=== PATIENT | female | born 1975 | race Caucasian/White ===

== ENCOUNTER 2020-01-16 23:12 | Emergency (ER) | payer BC, SELFPAY ==
--- NOTE | ~2020-01-16 | CT_ITS ---
EXAMINATION: CT abdomen pelvis wo con DATE: 01/17/2020 00:44 INDICATION: Bilateral flank pain. TECHNIQUE: Computed tomography (CT) of the abdomen and pelvis was performed without intravenous contr ast. Automated exposure control and iterative reconstruction technique were employed. The dose-length product was 738.97 mGy-cm. COMPARISON: CT abdomen and pelvis 12/15/2016 FINDINGS: The visualized portions of the lung bases are clear without pneumonia or pleural effusion. The heart size is normal. No pericardial effusion. There are bilateral breast implants. The liver, sp alan, gallbladder, pancreas, adrenal glands, and kidneys are normal. There are no dilated loops of nile wel. There are changes of appendectomy. There are no pathologically enlarged lymph nodes. There is no free intraperitoneal fluid. There is mild thoracolumbar spondylosis. IMPRESSION: 1. No urolithiasis. Reviewed, dictated and finalized at location A. IMPRESSION: 1. No urolithiasis.
[2020-01-16 23:30] VITALS: BP 144/88; PULSE 104; RESP 16; TEMP 36.7; O2SAT 98
[2020-01-17 00:05] LABS: Basophils Percent Auto 0.4 % (0.2-1.2); Hematocrit 42.2 % (37.0-47.0); Immature Granulocyte Absolute 0.01 K/mm3 (0.00-0.031); Immature Granulocyte Percent A 0.1 % (0-0.5); Lymphocytes Absolute Auto 3.49 K/mm3 (0.9-3.2); Lymphocytes Percent Auto 42.6 % (18.3-44.2); Mean Corpuscular HGB Conc 33.2 g/dl (32-36); Mean Corpuscular Hemoglobin 29.5 pg (26-34); Mean Corpuscular Volume 88.8 fl (80-100); Mean Platelet Volume 9.5 fl (7.4-10.4); Monocytes Absolute Auto 0.8 K/mm3 (0.1-0.6); Monocytes Percent Auto 9.3 % (2.6-8.5); Neutrophils Absolute Auto 3.9 K/mm3 (1.3-6.7); Neutrophils Percent Auto 47.6 % (45.5-73.1); Platelet Count Result 306 k/mm3 (150-375); Red Blood Count 4.75 M/mm3 (4.2-5.4); Red Cell Distribution Width 13.2 % (11.5-14.5); White Blood Count 8.2 K/mm3 (4.5-10.0)
[2020-01-17 00:13] LABS: Add Urine Microscopic? YES; Appearance Urine Clear (Clear); Bilirubin Urine Negative (Negative); Blood Urine Negative (Negative); Color Urine Yellow (Yellow); Glucose Urine UA Negative (Negative); Ketones Urine Negative (Negative); Leukocyte Esterase Ur 1+ LEU/UL (Negative); Mucus Urine Rare /lpf; Nitrate Urine Negative (Negative); Protein Urine 1+ mg/dL (Negative); RBC Urine 0-2 /hpf (0-2); Specific Grav Ur 1.023 (1.001-1.035); Squamous Epithelial Cell Urine Many /hpf (Few); Urobilinogen Urine Negative mg/dL (<2.0)
[2020-01-17] MEDS: ONDANSETRON INJ 4 MG/2 ML VIAL IV PUSH (00:14)
[2020-01-17] MEDS: MORPHINE SULFATE 4 MG/ML INJ IV PUSH (00:14)
[2020-01-17 00:17] LABS: Alanine Aminotransferase 40 U/L (4-35); Albumin Level 4.7 g/dL (3.5-5.1); Alkaline Phosphatase 139 U/L (38-126); Aspartate Amino Transferase 38 U/L (14-36); Bilirubin,Total 0.3 mg/dL (0.2-1.3); Blood Urea Nitrogen 14 mg/dL (7-17); Calcium 9.3 mg/dL (8.4-10.2); Carbon Dioxide 27 mmol/L (22-30); Chloride 102 mmol/L (98-107); Estimated Glomerular Filt Rate > 60; Glucose 118 mg/dL (65-105); Lipase 126 U/L (23-300); Potassium 3.8 mmol/L (3.4-5.0); Sodium 137 mmol/L (137-145)
--- NOTE | 2020-01-17 00:28 | ED.ABDPAIN ---
HPI - Abdominal Pain General Chief Complaint: Abdominal Pain Stated Complaint: Lower abd pain Time Seen by Provider: 01/16/20 23:27 History of Present Illness HPI narrative: Patient is a 44-year-old female who presents ER with lower abdominal pain. Began yesterday and has increased. Constant pain. Associate with nausea but no vomiting. Normal stools. No urinary symptoms associated with it. Symptoms are worse with positional movements. Better with laying down flat. Occasional radiation to her back. Related Data Home Medications Medication Instructions Recorded Confirmed albuterol sulfate 90 mcg/actuation 1 puff INHALATION Q4H PRN 07/24/19 aerosol inhaler alprazolam 1 mg tablet 1 mg PO DAILY 07/24/19 budesonide-formoterol HFA 160 2 puff INHALATION Q12H 07/24/19 mcg-4.5 mcg/actuation aerosol inhaler letrozole 2.5 mg tablet 2.5 mg PO DAILY 07/24/19 montelukast 10 mg tablet 10 mg PO DAILY 07/24/19 paroxetine HCl 20 mg tablet 40 mg PO DAILY 07/24/19 Allergies Allergy/AdvReac Type Severity Reaction Status Date / Time scopolamine Allergy Unknown TEMPORARY Verified 01/16/20 23:38 LOSS OF VISION hydrocodone AdvReac Unknown ITCHING Verified 01/16/20 23:38 Review of Systems Review of Systems: All systems reviewed & are unremarkable except as noted in HPI and below Constitutional: Constitutional: Denies chills, Denies fever(s) and Denies weakness ENT: Denies nasal congestion and Denies sore throat Respiratory: Respiratory: Denies cough, Denies dyspnea and Denies wheezing Gastrointestinal: Gastrointestinal: Reports abdominal pain, Denies constipation, Denies diarrhea, Reports nausea and Denies vomiting Genitourinary: Genitourinary: Denies hematuria, Denies nocturia and Denies urinary incontinence [facility] Past Medical History Medical History (Updated 01/17/20 @ 04:22 by Hardy Sotelo MD) No pertinent past medical history Surgical History Surgical History (Updated 01/17/20 @ 00:29 by Hardy Sotelo MD) H/O: hysterectomy Hx of appendectomy Social History Social History Smoking status: Never smoker Alcohol intake: never Exam Narrative: Exam Narrative: GENERAL: Uncomfortable-appearing, well-nourished, and in no acute distress. HEAD: Normocephalic, atraumatic. ENT: Mucous membranes moist.. CHEST: Clear to auscultation. No respiratory distress. HEART: Regular rate and rhythm. Normal peripheral pulses. ABDOMEN: Soft, mild suprapubic tenderness without guarding, nondistended, normal active bowel sounds. EXTREMITIES: Normal range of motion. No edema. SKIN: Warm, dry, no rash. NEURO: Alert and oriented x3. Course Vital Signs Vital signs: Vital Signs Temperature 98.1 F 01/16/20 23:30 Pulse Rate 104 H 01/16/20 23:30 Respiratory Rate 16 01/16/20 23:30 Blood Pressure 144/88 H 01/16/20 23:30 Pulse Oximetry 98 01/16/20 23:30 Temperature 98.1 F 01/16/20 23:30 Pulse Rate 73 01/17/20 00:49 Respiratory Rate 16 01/17/20 00:49 Blood Pressure 126/78 01/17/20 00:49 Pulse Oximetry 100 01/17/20 00:49 MDM - Abdominal Pain Lab Data Result diagrams: 01/16/20 23:50 01/16/20 23:50 Labs: Lab Results 01/16/20 01/16/20 01/16/20 Range/Units 23:50 23:50 23:50 WBC 8.2 (4.5-10.0) K/mm3 RBC 4.75 (4.2-5.4) M/mm3 Hgb 14.0 (12.0-15.0) g/dL Hct 42.2 (37.0-47.0) % MCV 88.8 (80-100) fl MCH 29.5 (26-34) pg MCHC 33.2 (32-36) g/dl RDW 13.2 (11.5-14.5) % Plt Count 306 (150-375) k/mm3 MPV 9.5 (7.4-10.4) fl Immature Gran % (Auto) 0.1 (0-0.5) % Neut % (Auto) 47.6 (45.5-73.1) % Lymph % (Auto) 42.6 (18.3-44.2) % B[place] % (Auto) 9.3 H (2.6-8.5) % Eos % (Auto) 0.0 (0-4.4) % Baso % (Auto) 0.4 (0.2-1.2) % Lymph # (Auto) 3.49 H (0.9-3.2) K/mm3 Barrow # (Auto) 0.8 H (0.1-0.6) K/mm3 Eos # (Auto)
[2020-01-17 00:49] VITALS: BP 126/78; PULSE 73; RESP 16; O2SAT 100
== END 2020-01-17 02:43 | disposition home or self-care (01) ==
PROVIDERS: Emergency Provider Emergency Medicine; PCP Family Medicine
DX: K59.00 Constipation, unspecified (principal)
CPT/HCPCS: 36415; 74176; 80053; 81001; 83690; 85025; 96374; 96375; 99284; J2270; J2405

== ENCOUNTER 2020-02-13 05:52 | Outpatient (CLI) | payer BC, SELFPAY ==
[2020-02-13 16:51] LABS: SARS-CoV-2 RNA PCR Negative
== END 2020-02-13 05:53 | disposition home or self-care (01) ==
LOC: ANHCOVIDDT 05:53
PROVIDERS: PCP Family Medicine; Visit Provider Obstetrics & Gynecology
DX: Z01.812 Encounter for preprocedural laboratory examination (principal); Z20.828 Contact with and (suspected) exposure to other viral communicable diseases
CPT/HCPCS: 87635; C9803; U0003

== ENCOUNTER 2020-02-14 01:38 | Day surgery (SDC) | payer BC, SELFPAY ==
[2020-02-12 14:49] VITALS: BMI 30.9
--- NOTE | 2020-02-13 14:59 | PM.IMHP ---
H&P: HPI History of Present Illness Chief complaint: Pelvic Pain Narrative: Amita Gomez is a 44 year old female Status post hysterectomy and bilateral salpingo-oophorectomy. For diagnostic laparoscopy. She has a history of breast cancer had undergone hysterectomy BSO there was remaining portion ovarian tissue which was removed later and labs have since proven that she is menopausal. She has severe pain dyspareunia which has been going 2 weeks. She has no GI or bowel complaints. Risks and benefits of laparoscopy were reviewed including but not exclusive of , aspiration pneumonia bleeding, transfusion, perforation to bowel, bladder, ureters, or other internal organs with need for laparotomy. She voiced understanding. She had all questions answered. She read the [employer] handout entitled laparoscopy. She asked to proceed Review of Systems Review of Systems: All systems reviewed & are unremarkable except as noted in HPI and below PMFSH Past Medical History Medical History No pertinent past medical history Surgical History Surgical History H/O: hysterectomy Hx of appendectomy Family History Family History Grandparent Hypertension Cerebrovascular accident Mother Hypertension No family history of cerebrovascular accident (CVA) Social History Social History Smoking status: Never smoker Alcohol intake: never Meds Home Medications and Allergies Home Medications Medication Instructions Recorded Confirmed Type albuterol sulfate 90 mcg/actuation 1 puff INHALATION Q4H PRN 07/24/19 02/12/20 History aerosol inhaler alprazolam 1 mg tablet 1 mg PO BID PRN 07/24/19 02/12/20 History budesonide-formoterol HFA 160 2 puff INHALATION Q12H 07/24/19 02/12/20 History mcg-4.5 mcg/actuation aerosol inhaler letrozole 2.5 mg tablet 2.5 mg PO DAILY 07/24/19 02/12/20 History montelukast 10 mg tablet 10 mg PO DAILY 07/24/19 02/12/20 History Fasenra See Rx Instructions .ROUTE .COMPLEX 02/12/20 02/12/20 History paroxetine HCl [Paxil] 40 mg PO QPM 02/12/20 02/12/20 History Allergies Allergy/AdvReac Type Severity Reaction Status Date / Time scopolamine Allergy Unknown DOUBLE Verified 02/12/20 14:33 VISION hydrocodone AdvReac Unknown ITCHING Verified 02/12/20 14:33 Exam Const: General: no acute distress Eyes: General: appearance normal, both eyes and all related structures Neck: Neck: supple and no JVD Thyroid: thyroid normal Resp: Effort & Inspection: normal respiratory effort Auscultation: clear to auscultation bilaterally Cardio: Rate: regular rate Rhythm: regular rhythm GI: Inspection: non-distended GI Palp: Yes Soft to palpation, No Tenderness to palpation present (GI) and No Guarding due to palpation present (GI) Auscultation: normal bowel sounds : General: Yes bladder normal to inspection and Yes bladder normal to palpation External Female Exam: normal appearance of the urethra Speculum Exam - Vagina: normal appearance of the vagina and tenderness Speculum Exam - Cervix: Cervix absent Bimanual exam- vagina & uterus: uterus absent Bimanual Exam- Adnexa, other: tender bilaterally Skin: General skin exam: no rashes or lesions noted Extrem: General: normal to inspection and no edema Psych: Mental Status: mental status grossly normal Affect: normal affect Assessment and Plan Additional Plan Impression: Pelvic pain postop Plan: Diagnostic laparoscopy
[2020-02-14] VITALS (14 sets, daily range): BP systolic 95–114; BP diastolic 60–79; PULSE 42–93; RESP 12–20; TEMP 35.7–36.4; O2SAT 99–100
--- NOTE | 2020-02-14 06:28 | WPDHPUPDATE1 ---
History and Physical Update Update Date/Time: 02/14/20 06:28 History and Physical has been reviewed, including an updated exam of the patient. There are NO changes in the patient's condition. Risks, benefits, and alternatives have been discussed and questions answered. Patient agrees to proceed with procedure.
--- NOTE | 2020-02-14 12:39 | WPDANESEPPF ---
Anes - Initial Pre Proc Eval Procedure: Operation Date: 02/14/20 13:45 Proposed Procedures p Diagnostic Laparoscopy - Won May MD Date/Time: 02/14/20 12:39 Surgeon: Won May MD Pre Op Diagnosis: Pelvic Pain Patient Data Age: 44 Gender: F Height: 5 ft 3 in Weight: 79.38 kg Allergies Allergy/AdvReac Type Severity Reaction Status Date / Time scopolamine Allergy Severe DOUBLE Verified 02/14/20 12:38 VISION FOR 4 DAYS hydrocodone AdvReac Mild ITCHING Verified 02/14/20 12:38 Home Medications Medication Instructions Recorded Confirmed Type albuterol sulfate 90 mcg/actuation 1 puff INHALATION Q4H PRN 07/24/19 02/12/20 History aerosol inhaler alprazolam 1 mg tablet 1 mg PO BID PRN 07/24/19 02/12/20 History budesonide-formoterol HFA 160 2 puff INHALATION Q12H 07/24/19 02/12/20 History mcg-4.5 mcg/actuation aerosol inhaler letrozole 2.5 mg tablet 2.5 mg PO DAILY 07/24/19 02/12/20 History montelukast 10 mg tablet 10 mg PO DAILY 07/24/19 02/12/20 History Fasenra See Rx Instructions .ROUTE .COMPLEX 02/12/20 02/12/20 History paroxetine HCl [Paxil] 40 mg PO QPM 02/12/20 02/12/20 History ketorolac 10 mg PO QID 5 Days #20 tablet 02/14/20 Rx Patient hx anesthesia problems: none Family hx anesthesia problems: none PMFSH Past Medical History Medical History (Updated 02/14/20 @ 12:39 by Carson Marmolejo MD) Anxiety Asthma Breast cancer, left breast Breast cancer, right No pertinent past medical history Surgical History Surgical History H/O: hysterectomy Hx of appendectomy Family History Family History Grandparent Hypertension Cerebrovascular accident Mother Hypertension No family history of cerebrovascular accident (CVA) Social History Social History Smoking status: Never smoker Alcohol intake: never Anes - Eval Final PreProcedure Day of Procedure 02/14/20 12:39 Patient weight: overweight Heart: regular rate and rhythm Lungs: clear to auscultation Airway: Mallampati scale class III Neurological: alert and oriented Last oral intake: >/= 8 hours ASA classification: III Emergent: no Anesthetic plan: proceed Anesthesia type and monitoring: general ETT and standard monitoring Informed Consent: The patient's anesthetic plan and its attendant risks and benefits were discussed with the patient/family/POA. Questions were solicited and answers provided to the satisfaction of the patient/family/POA.
[2020-02-14] MEDS: LACTATED RINGERS 1,000 ML 30 ML IV CONT ×2 (12:44→14:08)
--- NOTE | 2020-02-14 13:19 | P.OP_ITS ---
Procedure Note - Detailed Date of procedure: 02/14/20 Pre-op diagnosis: Pelvic Pain Surgeon: Won May MD postop diagnosis: Pelvic pain /endometriosis /pelvic adhesions Procedure: Laparoscopic destruction of endometriosis lysis of adhesions Anesthesia: General endotracheal EBL: 5Cc Complications: None Findings: Absent uterus ovaries and tubes. Small powder burn endometriosis along the right and left uterus sacral ligaments. Absent appendix. Normal- appearing gallbladder and liver edge Description of procedure: Patient was prepped draped in normal sterile fashion placed in dorsal lithotomy position. Under excellent general endotracheal anesthesia weighted speculum was placed in posterior fornix of vagina. Sponge stick was placed in vagina the weighted speculum was removed the bladder was emptied of clear urine. Gloves were changed A supraumbilical incision was made the Veress needle passed in the abdomen. Abdomen was filled with CO2 gas to 15mm Hg. The 5mm lanced under direct visualization assuring no injury. Patient placed in Trendelenburg and a suprapubic incision made. The 5mm trocar advanced under direct visualization assuring no injury. The above findings were seen the adhesions were sharply dissected using 6 Endo Hima small areas of endometriosis were seen along the right uterosacral ligament and these were cauterized there was a small left uterus sacral area of powder burn endometriosis in this was point cauterized at 35 w per 2nd. Irrigation was undertaken until clear. The remainder of the pelvis appeared within normal limits. Lower site removed. The gas removed from the abdomen. The upper site removed. The incisions closed with 4 O Monocryl an d glue. Patient went recovery in satisfactory condition. All sponge, needle, instrument counts were correct. There were no immediate complications
--- NOTE | 2020-02-14 15:51 | SUR.PHASEI ---
1525 SPOKE WITH SON(LOVE) UPDATED ON MOMS CONDITION AND STATUS
--- NOTE | 2020-02-14 16:51 | SUR.PHASEII ---
UPDATED; EN ROUTE TO HOSPITAL.
== END 2020-02-14 17:08 | disposition home or self-care (01) ==
PROVIDERS: PCP Family Medicine; Visit Provider Obstetrics & Gynecology
PROC: (CPT 49320; principal; 2020-02-14 13:45)
DX: R10.2 Pelvic and perineal pain (principal); N73.6 Female pelvic peritoneal adhesions (postinfective); N80.3 Endometriosis of pelvic peritoneum; J45.909 Unspecified asthma, uncomplicated; F41.9 Anxiety disorder, unspecified; Z85.3 Personal history of malignant neoplasm of breast
CPT/HCPCS: 58662; 36415; 86850; 86900; 86901; A9270; J1100; J2250; J2405; J2704; J2710; J3010; J7120

== ENCOUNTER → 2020-03-23 14:40 | Outpatient (CLI) | payer BC, SELFPAY ==
--- NOTE | ~2020-03-23 | CT_ITS ---
EXAMINATION: CT chest w con DATE: 03/23/2020 15:02 INDICATION: Malignant neoplasm of the upper outer quadrant of the right breast status post bilateral mastectomy and implant reconstruction TECHNIQUE: Transaxial computed tomographic images of the chest were obtained after the administration of 75 cc of Omnipaque 350 intravenous contrast. The dose-length product (DLP) was 230.39 mGy-cm. Ite rative reconstruction was used. COMPARISON: 09/18/2018 FINDINGS: There are changes of bilateral mastectomy. There has been interval removal of the tissue ex panders and replacement with bilateral breast implants. No suspicious pulmonary nodules are identifie d. No pathologically enlarged thoracic lymph nodes are identified. The heart size is normal. The lung s are free of acute opacities. There is no pleural effusion or pneumothorax. There are partially imag ed changes of anterior fusion procedure in the lower cervical spine. There is mild thoracic spondylos is. IMPRESSION: 1. No acute cardiopulmonary abnormality. Reviewed, dictated and finalized at location A.
== END ==
DX: C50.411 Malignant neoplasm of upper-outer quadrant of right female breast (principal); Z17.0 Estrogen receptor positive status [ER+]
CPT/HCPCS: 71260; Q9967

== ENCOUNTER 2020-08-14 12:41 | Outpatient (CLI) | payer BC, SELFPAY ==
--- NOTE | 2020-08-18 16:48 | WPDHOLTEREM ---
Holter/Event Monitor Holter/Event Monitor Date of procedure: 08/14/20 Procedure Type: 24 hour holter monitor Indications: Palpitations Conclusion: 1. 24 hour holter monitor on 08/14/20. 2. Predominant rhythm is sinus rhythm. HR range 54-174 bpm; average HR 92 bpm. 3. There are 6 premature supraventricular complexes. One atrial tachycardia at 135 bpm lasting 8 beats. 4. There are 7 premature ventricular complexes. No ventricular tachycardia. 5. No sinoatrial or atrioventricular blocks. No significant pauses greater than 2 seconds 6. Patient reports symptoms of racing, pressure, shortness of breath, tightness which demonstrate sinus rhythm, HR range 59-132 bpm.
== END 2020-08-14 12:42 | disposition home or self-care (01) ==
PROVIDERS: PCP Family Medicine; Visit Provider Nurse Practitioner Family
DX: R00.2 Palpitations (principal)
CPT/HCPCS: 93225; 93226

== ENCOUNTER 2021-01-03 16:41 | Emergency (ER) | payer BC, SELFPAY ==
--- NOTE | ~2021-01-03 | CT_ITS ---
EXAMINATION: CT abdomen pelvis w con DATE: 01/03/2021 17:55 INDICATION: Abdominal pain, vomiting and diarrhea TECHNIQUE: Computed tomography (CT) of the abdomen and pelvis was performed with 100 mL Omnipaque-350 intravenous contrast. Automated exposure control and iterative reconstruction technique were employe d. The dose-length product was 549.28 mGy-cm. COMPARISON: 01/17/2020 FINDINGS: Lung bases are clear. Heart size is normal. No pericardial or pleural effusion. Bilateral breast impl ants. Liver, gallbladder, pancreas, bilateral adrenal glands and kidneys are normal. Heterogeneous en hancement with geographic distribution in the spleen likely related to phase of contrast. Postoperati ve changes at the tip of the cecum likely related to prior appendectomy. There are a few scattered co lonic diverticula without adjacent inflammatory change to suggest diverticulitis. No bowel obstructio n. 1.7 cm fat attenuation lesion in the pelvis near the sigmoid colon with very thin rim of soft tiss ue density as well as a central thin linear density consistent with an epiploic appendage and likely epiploic appendagitis. There is a second smaller similar-appearing 1.4 cm lesion in the right hemipel vis along the more distal sigmoid colon. Both lesions are new since the prior study. Decompressed rush dder is normal. The uterus is not identified and has likely been surgically resected. No free intrape ritoneal gas or fluid. No pathologically enlarged abdominal or pelvic lymphadenopathy. Bones are unre markable. IMPRESSION: 1. A couple new small ovoid fat attenuation lesions in the pelvis along side the sigmoid colon consis tent with mild epiploic appendagitis. No other acute intra-abdominal/pelvic process. Reviewed, dictated and finalized at location A. IMPRESSION: 1. A couple new small ovoid fat attenuation lesions in the pelvis along side th e sigmoid colon consistent with mild epiploic appendagitis. No other acute intr a-abdominal/pelvic process.
[2021-01-03 16:43] VITALS: BP 125/63; PULSE 94; RESP 18; TEMP 36.9; O2SAT 100
[2021-01-03 16:59] LABS: Basophils Percent Auto 0.1 % (0.2-1.2); Hematocrit 42.2 % (37.0-47.0); Hemoglobin 13.9 g/dL (12.0-15.0); Immature Granulocyte Absolute 0.02 K/mm3 (0.00-0.031); Immature Granulocyte Percent A 0.2 % (0-0.5); Lymphocytes Absolute Auto 2.28 K/mm3 (0.9-3.2); Lymphocytes Percent Auto 23.8 % (18.3-44.2); Mean Corpuscular HGB Conc 32.9 g/dl (32-36); Mean Corpuscular Hemoglobin 29.1 pg (26-34); Mean Corpuscular Volume 88.5 fl (80-100); Monocytes Absolute Auto 0.6 K/mm3 (0.1-0.6); Monocytes Percent Auto 6.3 % (2.6-8.5); Neutrophils Absolute Auto 6.7 K/mm3 (1.3-6.7); Neutrophils Percent Auto 69.6 % (45.5-73.1); Platelet Count Result 305 k/mm3 (150-375); Red Blood Count 4.77 M/mm3 (4.2-5.4); Red Cell Distribution Width 12.6 % (11.5-14.5); White Blood Count 9.6 K/mm3 (4.5-10.0)
[2021-01-03 17:03] LABS: Add Urine Microscopic? YES; Appearance Urine Cloudy (Clear); Bacteria Urine Trace /hpf; Bilirubin Urine Negative (Negative); Blood Urine Negative (Negative); Color Urine Yellow (Yellow); Glucose Urine UA Negative (Negative); Hyaline Casts Urine 15-19 /lpf; Ketones Urine 1+ mg/dL (Negative); Leukocyte Esterase Ur 3+ LEU/UL (Negative); Mucus Urine Heavy /lpf; Nitrate Urine Negative (Negative); Protein Urine 2+ mg/dL (Negative); RBC Urine 0-2 /hpf (0-2); Specific Grav Ur 1.028 (1.001-1.035); Squamous Epithelial Cell Urine Few /hpf (Few); Urobilinogen Urine Negative mg/dL (<2.0)
[2021-01-03 17:04] VITALS: BP 105/86; BP 126/57; BP 128/84; PULSE 126; PULSE 76; PULSE 97
[2021-01-03 17:08] LABS: Alanine Aminotransferase 24 U/L (4-35); Albumin Level 4.8 g/dL (3.5-5.1); Alkaline Phosphatase 121 U/L (38-126); Anion Gap 11 mmol/L (8-16); Aspartate Amino Transferase 34 U/L (14-36); Bilirubin,Total 0.9 mg/dL (0.2-1.3); Blood Urea Nitrogen 17 mg/dL (7-17); Calcium 10.3 mg/dL (8.4-10.2); Carbon Dioxide 25 mmol/L (22-30); Chloride 106 mmol/L (98-107); Estimated CRCL calculation 63 ml/min; Estimated Glomerular Filt Rate 60; Glucose 113 mg/dL (65-105); Lipase 71 U/L (23-300); Potassium 3.7 mmol/L (3.4-5.0); Sodium 142 mmol/L (137-145)
--- NOTE | 2021-01-03 17:34 | ED.GENADULT ---
HPI - General Adult General Chief complaint: Nausea/Vomiting/Diarrhea Stated complaint: vomiting Time Seen by Provider: 01/03/21 17:04 Source: patient Mode of arrival: ambulatory Limitations: no limitations History of Present Illness HPI narrative: Patient presents for evaluation of abdominal pain, nausea, vomiting, diarrhea since yesterday. She indicates she ate some fast food 2 nights ago, which she normally does not eat. Yesterday morning she woke from sleep with diarrhea. She then developed some lower abdominal pain and had episodes of vomiting. She contacted her PCP last evening and they gave her prescription for Zofran. She took it last evening and her symptoms improved. However she woke from sleep this morning with recurrent symptoms that did not respond to zofran. She has a history of breast cancer status post bilateral mastectomy, currently in remission. She also has asthma and had Covid last fall with subsequent tachycardia. She saw cardiology and they performed an echo and CT of her chest, both of which were normal. Her surgical history is positive for appendectomy, ovarian cyst removal and hysterectomy. She states she saw some blood on tissue today when wiping after urination. She thought she had an odor to her urine last week. She denies any vaginal bleeding or discharge. This afternoon she thought that her emesis had a coffee-ground appearance. She does take a baby aspirin daily but denies any other blood thinners. She states her abdominal pain occurs just prior to the time of vomiting and is a squeezing sensation. Related Data Home Medications Medication Instructions Recorded Confirmed Oscar See Rx Instructions .ROUTE .COMPLEX 02/12/20 10/01/20 cetirizine 10 mg tablet 10 mg PO DAILY 03/13/20 10/01/20 aspirin [Aspir-81] 81 mg PO DAILY 01/03/21 metoprolol succinate PO 01/03/21 ondansetron HCl 01/03/21 Allergies Allergy/AdvReac Type Severity Reaction Status Date / Time scopolamine Allergy Severe DOUBLE Verified 01/03/21 17:00 VISION FOR 4 DAYS hydrocodone AdvReac Mild ITCHING Verified 01/03/21 17:00 Review of Systems Review of Systems: Narrative: CONSTITUTIONAL:Reports chills. Denies fever or sweats. EYES: Denies visual changes, redness, or discharge. ENT: Denies rhinorrhea, congestion, sore throat, or otalgia. CARDIOVASCULAR: Denies chest pain, palpitations, or edema. RESPIRATORY: Denies cough or dyspnea. GASTROINTESTINAL: Reports abdominal pain, nausea, vomiting, diarrhea GENITOURINARY: Reports blood on the tissue when wiping after urination. Reports recent foul order to her urine. Denies vaginal bleeding or discharge. SKIN: Denies rash or itching. MUSCULOSKELETAL: Denies back pain, joint pain, or myalgia. NEUROLOGIC: Denies headache, numbness, dizziness, or weakness. PSYCHIATRIC: Denies anxiety or depression. [facility] Past Medical History Medical History (Updated 01/03/21 @ 19:13 by LISA Jacobo, ) Anxiety Asthma Breast cancer Breast cancer, left breast Breast cancer, right Diarrhea Endometriosis Epigastric pain No pertinent past medical history RLQ abdominal pain Surgical History Surgical History H/O mastectomy H/O: hysterectomy Hx of appendectomy Family History Family History Grandparent Hypertension Cerebrovascular accident Mother Hypertension No family history of cerebrovascular accident (CVA) Cirrhosis Autoimmune disease Social History Social History (Updated 01/03/21 @ 17:40 by LISA Jacobo, ) Smoking status: Never smoker Alcohol intake: never Substance use: never Living arrangements: with family Gender identity (if verbalized by the patient): Female Sexual Orientation (if Verbalized by the Patient): Straight or Heterosexual Spiritual care concerns: No Exam Narrative: Exam Narrative: GENERA
[2021-01-03] MEDS: SODIUM CHLORIDE 0.9% IV 1,000 ML 999 ML IV CONT (17:40)
[2021-01-03] MEDS: METOCLOPRAMIDE HCL INJ 10 MG/2 ML VIAL IV PUSH (17:41)
[2021-01-03] MEDS: FAMOTIDINE 20 MG/2 ML VIAL IV PUSH (17:43)
[2021-01-03] MEDS: diphenhydrAMINE HCl INJ 50 MG/ML VIAL 25 MG IV PUSH (17:45)
[2021-01-03 17:46] VITALS: BP 120/72; PULSE 98; RESP 18; O2SAT 97
[2021-01-03 18:09] VITALS: BP 112/82; PULSE 87; RESP 18; O2SAT 97
[2021-01-03 19:25] VITALS: BP 105/59; PULSE 68; RESP 16; O2SAT 99
== END 2021-01-03 19:25 | disposition home or self-care (01) ==
PROVIDERS: Emergency Medicine; Emergency Provider Nurse Practitioner; PCP Family Medicine
DX: K63.89 Other specified diseases of intestine (principal); N30.00 Acute cystitis without hematuria; R11.2 Nausea with vomiting, unspecified; R19.7 Diarrhea, unspecified; J45.909 Unspecified asthma, uncomplicated; Z86.16 Personal history of COVID-19; Z79.82 Long term (current) use of aspirin; Z85.3 Personal history of malignant neoplasm of breast; Z90.10 Acquired absence of unspecified breast and nipple
CPT/HCPCS: 36415; 74177; 80053; 81001; 83690; 85025; 87077; 87086; 87088; 96361; 96374; 96375; 99285; J1200; J2765; J7030; Q9967

== ENCOUNTER 2022-11-14 02:32 | Emergency (ER) | payer BC, SELFPAY ==
[2022-11-14] VITALS (17 sets, daily range): BP systolic 111–131; BP diastolic 73–85; PULSE 63–115; RESP 14–31; TEMP 36.4; O2SAT 95–100
--- NOTE | ~2022-11-14 | XR_ITS ---
Portable chest x-ray Comparison: 05/10/2019 Clinical History: Dyspnea Findings: Lungs are clear, without focal consolidation or pleural effusion. Cardiomediastinal silho uette is stable. Cervical spine fixation hardware is partially imaged. Impression: Clear lungs. Reviewed, dictated and finalized at location . Impression: Clear lungs.
--- NOTE | ~2022-11-14 | CT_ITS ---
CT scan of the Neck Technique: 2.5 mm axial scans were obtained through the neck after intravenous administration of 75 c c Omnipaque 350. Coronal and sagittal reconstructions of the neck were obtained. Dose reduction techn ique was used on this scan by utilizing automated exposure control and iterative reconstruction techn ique. The dose-length product (DLP) was 473.08 mGy-cm. Clinical History: Stridor Findings: There is no evidence of any significant cervical lymphadenopathy. Several small, nonenlarged jugulo- digastric and posterior cervical lymph nodes are noted bilaterally. Parapharyngeal spaces appear norm al bilaterally. The parotid and submandibular glands appear normal. The pharyngeal mucosal spaces appear normal. No soft tissue masses are seen in the neck. The thyroid gland appears normal. Images of the lung apices reveal no abnormalities. There is partial opacification of the bilateral frontal sinuses and bilateral ethmoid air cells and bilateral maxilla ry sinuses. Anterior cervical fusion hardware is present extending from C4 to C7. There is mild reversal normal c ervical lordosis. Impression: Sinus disease, as above. Anterior cervical fusion from C4 to C7. Reviewed, dictated and finalized at location . Impression: Sinus disease, as above. Anterior cervical fusion from C4 to C7.
[2022-11-14] MEDS: ALBUTEROL SULFATE NEB 2.5 MG/3 ML INH INHALATION (02:56)
[2022-11-14] MEDS: IPRATROPIUM BR 0.02% INH SOLN 0.5 MG/2.5 ML VIAL INHALATION (02:58)
--- NOTE | 2022-11-14 03:05 | ED.GENADULT ---
HPI - General Adult General Chief complaint: Asthma Stated complaint: sob, asthma Time Seen by Provider: 11/14/22 02:48 History of Present Illness HPI narrative: Patient is a 47-year-old female who presents the emergency department with chief complaint of shortness of breath. Patient reports that she has prior history of asthma and had COVID last month. Patient states that she has noticed that she has been having some increasing shortness of breath over the last several days and reported that she started having some episodes of what she describes as stridor. The patient states that she noticed that she was making some upper airway noises whenever she was attempting to breathe and was noticing that her neck was pulling and whenever she would breathe. Patient denies fever reports that she has no chest pain Related Data Home Medications Medication Instructions Recorded Confirmed Oscar See Rx Instructions .Route .COMPLEX 02/12/20 08/02/21 cetirizine 10 mg tablet (Zyrtec) 10 mg PO DAILY 03/13/20 08/02/21 paroxetine HCl 40 mg tablet (Paxil) 40 mg PO DAILY 01/06/21 08/02/21 exemestane 25 mg tablet 25 mg PO DAILY 03/10/21 08/02/21 Allergies Allergy/AdvReac Type Severity Reaction Status Date / Time scopolamine Allergy Severe DOUBLE Verified 08/02/21 16:31 VISION FOR 4 DAYS hydrocodone AdvReac Mild ITCHING Verified 08/02/21 16:31 Review of Systems Review of Systems: A 10 system review of systems was completed on the patient and is negative except for what is stated in the HPI. Nursing and ancillary documentation was reviewed. [facility] Past Medical History Medical History Anxiety Asthma BMI 30.0-30.9,adult Breast cancer Breast cancer, left breast Breast cancer, right COVID-19 Diarrhea Endometriosis Epigastric pain No pertinent past medical history RLQ abdominal pain Surgical History Surgical History H/O mastectomy H/O: hysterectomy Hx of appendectomy Family History Family History Grandparent Hypertension Cerebrovascular accident Mother Hypertension No family history of cerebrovascular accident (CVA) Cirrhosis Autoimmune disease Father No problems noted. Sibling No problems noted. 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 Gender identity (if verbalized by the patient): Female Sexual Orientation (if Verbalized by the Patient): Straight or Heterosexual Spiritual care concerns: No Exam Narrative: GENERAL: Well-appearing, well-nourished, and in no acute distress. HEAD: Normocephalic, atraumatic. EYES: PERRLA and EOMI. ENT: Nares clear, no rhinorrhea or epistaxis. Mucous membranes moist. NECK: Supple. CHEST: Scattered wheezes to auscultation. No respiratory distress. HEART: Regular rate and rhythm. No murmur heard. Normal peripheral pulses. ABDOMEN: Soft, nontender, nondistended, normal active bowel sounds. EXTREMITIES: Normal range of motion. No edema. SKIN: Warm, dry, no rash. NEURO: No focal deficits. Alert and oriented x3. PSYCH: Normal mood and affect. Course Vital Signs Vital signs: Vital Signs Temperature 36.4 C 11/14/22 02:37 Pulse Rate 115 H 11/14/22 02:37 Respiratory Rate 26 H 11/14/22 02:37 Blood Pressure 131/85 11/14/22 02:37 Pulse Oximetry 99 11/14/22 02:37 Oxygen Delivery Room Air 11/14/22 02:37 Temperature 36.4 C 11/14/22 02:37 Pulse Rate 67 11/14/22 05:06 Respiratory Rate 22 H 11/14/22 05:06 Blood
[2022-11-14 03:34] LABS: Basophils Absolute Auto 0.1 K/mm3 (0.0-0.1); Basophils Percent Auto 0.9 % (0.2-1.2); Eosinophils Absolute Auto 0.8 K/mm3 (0-0.3); Eosinophils Percent Auto 11.9 % (0-4.4); Hematocrit 40.4 % (37.0-47.0); Hemoglobin 12.6 g/dL (12.0-15.0); Lymphocytes Absolute Auto 2.92 K/mm3 (0.9-3.2); Lymphocytes Percent Auto 45.2 % (18.3-44.2); Mean Corpuscular HGB Conc 31.2 g/dl (32-36); Mean Corpuscular Hemoglobin 27.1 pg (26-34); Mean Corpuscular Volume 86.9 fl (80-100); Mean Platelet Volume 9.1 fl (7.4-10.4); Monocytes Absolute Auto 0.5 K/mm3 (0.1-0.6); Monocytes Percent Auto 7.3 % (2.6-8.5); Neutrophils Absolute Auto 2.2 K/mm3 (1.3-6.7); Neutrophils Percent Auto 34.7 % (45.5-73.1); Platelet Count Result 261 k/mm3 (150-375); Red Blood Count 4.65 M/mm3 (4.2-5.4); Red Cell Distribution Width 14.1 % (11.5-14.5); White Blood Count 6.5 K/mm3 (4.5-10.0)
[2022-11-14] MEDS: methylPREDNISolone SOD SUCC 125 MG VIAL IV PUSH (03:34)
[2022-11-14 03:50] LABS: Alanine Aminotransferase 19 U/L (6-35); Albumin Level 4.6 g/dL (3.5-5.1); Alkaline Phosphatase 116 U/L (38-126); Anion Gap 3 mmol/L (8-16); Aspartate Amino Transferase 25 U/L (14-36); Bilirubin,Total 0.4 mg/dL (0.2-1.3); Blood Urea Nitrogen 11 mg/dL (7-17); Calcium 9.1 mg/dL (8.4-10.2); Carbon Dioxide 31 mmol/L (22-30); Chloride 103 mmol/L (98-107); Estimated CRCL calculation 85 ml/min; Estimated Glomerular Filt Rate > 60; Glucose 126 mg/dL (65-110); Potassium 4.2 mmol/L (3.4-5.0); Sodium 137 mmol/L (137-145)
[2022-11-14 04:01] LABS: Strep Group A RT-PCR NOT DETECTED (Negative)
[2022-11-14 04:12] LABS: Influenza A QL RT-PCR Negative (Negative); Influenza B QL RT-PCR Negative (Negative); RSV RNA, RT-PCR Negative (Negative); SARS-CoV-2 RNA PCR Positive
[2022-11-14] MEDS: ALBUTEROL SULFATE NEB 2.5 MG/3 ML INH 10 MG INHALATION (05:02)
[2022-11-14 05:19] LABS: Appearance Urine Clear (Clear); Bacteria Urine None Seen /hpf; Bilirubin Urine Negative (Negative); Blood Urine Negative (Negative); Color Urine Yellow (Yellow); Glucose Urine UA Negative (Negative); Ketones Urine Negative (Negative); Leukocyte Esterase Ur 2+ LEU/UL (Negative); Nitrate Urine Negative (Negative); Protein Urine Negative (Negative); Squamous Epithelial Cell Urine None seen /hpf (Few); Urobilinogen Urine 0.2 mg/dL (<2.0); WBC Urine 51-100 /hpf
[2022-11-14 05:21] LABS: Specific Grav Ur 1.046 (1.001-1.035)
[2022-11-14 05:24] LABS: Add Urine Microscopic? YES
[2022-11-14 08:40] LABS: Calcium Oxalate Crystals Urine Present /hpf
== END 2022-11-14 06:25 | disposition home or self-care (01) ==
PROVIDERS: Emergency Provider Emergency Medicine; PCP Family Medicine
DX: J45.901 Unspecified asthma with (acute) exacerbation (principal); N39.0 Urinary tract infection, site not specified; U07.1 COVID-19; F41.9 Anxiety disorder, unspecified; Z85.3 Personal history of malignant neoplasm of breast; Z86.16 Personal history of COVID-19; N80.9 Endometriosis, unspecified
CPT/HCPCS: 36415; 70491; 71045; 80053; 81001; 83605; 85025; 87086; 87088; 87637; 87651; 94640; 96374; 99284; J2930; Q9967